=== PATIENT | female | born 1995 | race Caucasian/White ===

== ENCOUNTER 2017-09-29 07:53 | Emergency (ER) | payer OTHER ==
--- NOTE | 2017-09-29 08:04 | UC ---
Hand/Wrist HPI - HPI Summary HPI Summary: 22 yo female c/o R wrist pain s/p fall onto outstretched wrist last evening approx 22:30. No loc, nor injury elsewhere. Tripped over dog. Hx R wrist fx in high school, exact inj doesn't recall. Current orthopedist [facility], but hasn't seen in a while. + dysesthesia x 5 digits RH. Able to move all fingers, but not fully d/t pain. Hurts mostly to move wrist. Pain radiates to elbow from wrist, but w/o point proximal pain. Able to straighten elbow. - History Of Current Complaint Stated Complaint: RIGHT HAND INJURY Hx Obtained From: Patient Hx Last Menstrual Period: "four months - I have really bad cysts" Onset/Duration: Sudden Onset - Allergies/Home Medications Allergies/Adverse Reactions: Allergies Allergy/AdvReac Type Severity Reaction Status Date / Time clavulanic acid Allergy Nausea And Verified 09/29/17 08:11 Vomiting onion Allergy See Comment Verified 09/29/17 08:11 PMH/Surg Hx/FS Hx/Imm Hx Previously Healthy: Yes - Surgical History Surgical History: Yes Surgery Procedure, Year, and Place: T&A, 2012, Outpatient - Family History Known Family History: Positive: Unknown - Social History Alcohol Use: Occasionally Substance Use Type: None Smoking Status (MU): Never Smoked Tobacco - Immunization History Most Recent Influenza Vaccination: Not the 2014/2015 Season Review of Systems Constitutional: Negative Skin: Other - see hpi. + swelling Eyes: Negative ENT: Negative Respiratory: Negative Cardiovascular: Negative Gastrointestinal: Negative Genitourinary: Negative Motor: Other - see hpi Neurovascular: Other - see hpi Musculoskeletal: Arthralgia Neurological: Other - see hpi Psychological: Negative Is Patient Immunocompromised?: No All Other Systems Reviewed And Are Negative: Yes Physical Exam Triage Information Reviewed: Yes Appearance: Well-Appearing, Well-Nourished Vital Signs Reviewed: Yes Eye Exam: Normal - grossly nonfocal, detailed exam not done ENT Exam: Normal - grossly nonfocal, detailed exam not done Neck exam: Normal - grossly nonfocal, no report neck tenderness or pain Respiratory Exam: Normal - no tachypnea, no dyspnea Cardiovascular Exam: Normal - HR regular, nondiaphoretic Abdominal Exam: Normal - soft, no c/o's pain Musculoskeletal Exam: Other - Re R hand / wrist: R wrist and hand + edema. No discoloration appreciated. Distal sens x 5 digits present LT, but + dysesthetic x 5. Able to move x 5 digits, but not from d/t pain in wrist. Some wrist motion, but minimal d/t pain. Tender R prox hand and wrist, jennifer scaphoid region. Straightens elbow ok, without point tenderness elbow. + c/o pain radiating from wrist. CR < 2 sec x 5 digits Neurological Exam: Other - see above [facility] Psychological Exam: Normal - conversing easily and appropriately Skin Exam: Normal [place] [facility] [place] Hand/Wrist Course/Dx - Course Course Of Treatment: Reference #: [id number]. Requests something stronger for pain. Rx Jonancy - Narc talk reviewed. Rx Naproxen - denies GI / renal concerns. Reviewed xray, reviewed report with Julita Santoromicha. Discussed importance of close f/u with orthopedist, ideally hand specialist. She declines local referral, resides in [place] and follows with [facility]. Will call tomorrow for appt this week if possible. Splint all times unless worse or new pain. Sling as needed for comfort. High suspicion for occult fx and / or ligament tear. Questions as posed answered to the best of my ability. - Differential Dx/Diagnosis Provider Diagnoses: Acute R wrist sprain. C/n exclude occult fx Discharge - Sign-Out/Discharge Documenting (check all that apply): Discharge/Admit/Transfer - Discharge Plan Condition: Stable Disposition: HOME Prescriptions: HYDROcodone/ACETAMIN 5-325 MG* [Jonancy 5-325 TAB*] 1 tab PO Q6H PRN #12 tab MDD 6 PRN Reason: Pain Naproxen [Naprosyn 500 mg tab] 500 mg PO Q12H PRN #30 tablet PRN Reason: Pain Patient Education Materials: Wrist Sprain (ED), Scaphoid Fracture (ED) Referrals: [place] CAMPOS,Katie [Primary Care Provider] - Additional Instructions: Follow up with [facility] this week. Recommend Hand specialist. Please call us if you need a local hand specialist referral. Splint - at all times unless worse or new pain. Sling as needed for comfort. Seek medical attention for worse or new problems. - Billing Disposition and Condition Condition: STABLE Disposition: HOME
[2017-09-29] MEDS ORDERED: Ibuprofen TAB* 600 MG PO ONE (08:10)
[2017-09-29 08:18] VITALS: BP 126/66
--- NOTE | 2017-09-29 08:37 | RAD ---
HISTORY: Fall on outstretched hand, history of remote right wrist fracture COMPARISONS: None available at the time of dictation VIEWS: 4, Frontal, lateral, oblique, and scaphoid deviation views of the right wrist FINDINGS: BONE DENSITY: Normal. BONES: There is no displaced fracture. JOINTS: There is no arthropathy. ALIGNMENT: There is no dislocation. SOFT TISSUES: Unremarkable. OTHER FINDINGS: None. IMPRESSION: NO ACUTE OSSEOUS INJURY. IF SYMPTOMS PERSIST, RECOMMEND REPEAT IMAGING.
== END 2017-09-29 09:18 | disposition home or self-care (01) ==
LOC: UCCORT 07:53
DX: S63.501A Unspecified sprain of right wrist, initial encounter (principal); W01.0XXA Fall on same level from slipping, tripping and stumbling without subsequent striking against object, initial encounter; Y93.9 Activity, unspecified; Y92.9 Unspecified place or not applicable; Z88.8 Allergy status to other drugs, medicaments and biological substances; Z91.018 Allergy to other foods
CPT/HCPCS: 99213; A9270-GY; G0463